=== PATIENT | male | born 1970 | race Caucasian/White ===

== ENCOUNTER 2016-07-08 14:10 | Inpatient (IN) | payer MEDICAID ==
[~2016-07-08] VITALS: Ht 185.4 cm; Wt 70.2 kg
[~2016-07-08 14:10] MED LIST: AMOX-263 PO; AZIT500T4 PO; DIG0125T PO; METH5TAB77 PO; METO25TA3 PO
[2016-07-08] MEDS ORDERED: SODIUM CHLORIDE 0.9% 1,000 ML IV ONE (14:27)
[2016-07-08] MEDS ORDERED: ALBUTEROL SULF 2.5 MG/0.5ML(0.5%) NEB SOLN NEB ONE (14:30)
[2016-07-08] MEDS ORDERED: IPRATROPIUM BROM 0.5 MG/2.5ML INH SOL NEB ONE (14:30)
[2016-07-08] MEDS ORDERED: cefTRIAXone 1GM/50ML D5W 50 ML IV ONE (14:30)
[2016-07-08 14:57] LABS: Basophils # (auto) 0 uL; Basophils % (auto) 0.2 % (0.0-2.0); Eosinophils # (auto) 0 uL; Eosinophils % (auto) 0.3 % (0.0-7.0); Hematocrit 42.6 % (41.0-53.0); Hemoglobin 13.8 g/dL (13.5-17.5); Lymphocytes # (auto) 0.7 uL; Lymphocytes % (auto) 5.3 % (10.0-50.0); Mean Corpuscular Hgb Conc. 32.3 g/dL (32.0-36.0); Mean Corpuscular Volume 86.8 fL (80.0-100.0); Mean Platelet Volume 9.2 fL (7.4-10.4); Monocytes # (auto) 0.6 uL; Monocytes % (auto) 4.6 % (0.0-12.0); Neutrophils # (auto) 11.7 uL; Neutrophils % (auto) 89.6 % (37.0-80.0); Platelet Count (auto) 244 10^3/uL (140-450); Red Cell Distribution Width 14.1 % (11.6-16.0); White Blood Cell 13.1 10^3/uL (4.4-10.8)
[2016-07-08 15:17] LABS: Albumin 3.1 g/dL (3.4-5.0); BUN/Creatinine Ratio 16.7; Bilirubin, Total 1.5 mg/dL (0.2-1.0); Calcium 8.1 mg/dL (8.5-10.1); Potassium 4.3 mmol/L (3.5-5.1); Total Protein 7.9 g/dL (6.4-8.2)
[2016-07-08 15:17] LABS: Lactic Acid 2.1 mmol/L (0.4-2.0)
[2016-07-08 15:27] LABS: REFLEX LACTIC ACID YES OR NO YES
[2016-07-08] MEDS ORDERED: LIDOCAINE 1% HCL (LOCAL ANESTH.) INJ 20ML MDV ONE (15:58)
[2016-07-08] MEDS ORDERED: ONDANSETRON HCL 4 MG/2 ML VIAL ONE (16:05)
[2016-07-08] MEDS ORDERED: MORPHINE SULFATE 4 MG/ML SYRG ONE (16:05)
[2016-07-08 16:30] LABS: Temperature: 21.4 C (20.0-25.0)
[2016-07-08 16:40] LABS: B-Type Natriuretic Peptide 712.52 pg/mL (0-100)
[2016-07-08] MEDS ORDERED: ONDANSETRON HCL 4 MG/2 ML VIAL IV ONE (17:15)
[2016-07-08] MEDS ORDERED: MORPHINE SULFATE 4 MG/ML SYRG IV ONE (17:15)
[2016-07-08] MEDS ORDERED: VANCOMYCIN PER PHARMACY 0 MG IV SCH (18:15)
[2016-07-08] MEDS ORDERED: cloNIDine HCL 0.1 MG TAB PO PRN (18:15)
[2016-07-08] MEDS ORDERED: ACETAMINOPHEN 325 MG TAB PO PRN (18:30)
[2016-07-08] MEDS ORDERED: DOCUSATE SOD 100 MG CAP PO PRN (18:30)
[2016-07-08] MEDS ORDERED: TEMAZEPAM 15 MG CAP PO PRN (18:30)
[2016-07-08] MEDS ORDERED: MORPHINE SULF INJ 2 MG/ML SYRINGE 1ML IV PRN (18:30)
[2016-07-08] MEDS ORDERED: ONDANSETRON HCL 4 MG/2 ML VIAL IV PRN (18:30)
[2016-07-08] MEDS ORDERED: NITROGLYCERIN 0.4 MG SL TAB SL PRN (18:30)
[2016-07-08] MEDS: ZINC SULFATE 220 MG CAP PO SCH (18:47)
[2016-07-08] MEDS: MULTIPLE VITAMIN TAB PO SCH (18:47)
[2016-07-08] MEDS: VANCOMYCIN 1GM/250ML D5W 250 ML IV SCH (19:08)
[2016-07-08 19:53] VITALS: BP 124/69
[2016-07-08 20:30] VITALS: BP 127/78
[2016-07-08 20:33] VITALS: BP 127/78
[2016-07-08] MEDS: MORPHINE SULF INJ 2 MG/ML SYRINGE 1ML IV PRN (21:05)
[2016-07-08] MEDS: FAMOTIDINE 20 MG TAB PO SCH (22:14)
[2016-07-08] MEDS: SODIUM CHLOR 0.9% PF (SALINE LOCK) 10ML VIAL IV SCH (22:14)
[2016-07-08] MEDS: ASCORBIC ACID 500 MG TAB PO SCH (22:14)
[2016-07-09] MEDS: ALBUTEROL SULF 2.5 MG/0.5ML(0.5%) NEB SOLN NEB SCH ×4 (00:14→18:26)
[2016-07-09] MEDS: IPRATROPIUM BROM 0.5 MG/2.5ML INH SOL NEB SCH ×4 (00:15→18:26)
[2016-07-09 00:19] VITALS: BP 122/83
[2016-07-09] MEDS: MORPHINE SULF INJ 2 MG/ML SYRINGE 1ML IV PRN ×5 (03:49→21:31)
[2016-07-09] MEDS: VANCOMYCIN 1GM/250ML D5W 250 ML IV SCH ×2 (03:51→11:08)
[2016-07-09 04:51] VITALS: BP 137/91
[2016-07-09 05:36] LABS: Basophils # (auto) 0.1 uL; Basophils % (auto) 0.8 % (0.0-2.0); Eosinophils # (auto) 0.1 uL; Eosinophils % (auto) 0.6 % (0.0-7.0); Hematocrit 37.7 % (41.0-53.0); Hemoglobin 12.2 g/dL (13.5-17.5); Lymphocytes # (auto) 1.2 uL; Lymphocytes % (auto) 12.1 % (10.0-50.0); Mean Corpuscular Hgb Conc. 32.4 g/dL (32.0-36.0); Mean Corpuscular Volume 86.3 fL (80.0-100.0); Mean Platelet Volume 9.8 fL (7.4-10.4); Monocytes # (auto) 0.6 uL; Monocytes % (auto) 6.7 % (0.0-12.0); Neutrophils # (auto) 7.7 uL; Neutrophils % (auto) 79.8 % (37.0-80.0); Platelet Count (auto) 191 10^3/uL (140-450); White Blood Cell 9.6 10^3/uL (4.4-10.8)
[2016-07-09 05:50] LABS: Calcium 7.9 mg/dL (8.5-10.1); Potassium 4.5 mmol/L (3.5-5.1)
[2016-07-09 05:54] LABS: Albumin 2.7 g/dL (3.4-5.0); BUN/Creatinine Ratio 18.9
[2016-07-09 05:57] LABS: Bilirubin, Total 1.9 mg/dL (0.2-1.0); Total Protein 6.9 g/dL (6.4-8.2)
[2016-07-09] MEDS: SODIUM CHLOR 0.9% PF (SALINE LOCK) 10ML VIAL IV SCH ×3 (07:07→21:31)
[2016-07-09 08:00] VITALS: BP 132/88
[2016-07-09] MEDS: BOOST PLUS 8 ounce PO SCH ×3 (09:55→18:00)
[2016-07-09] MEDS: cefTRIAXone 1GM/50ML D5W 50 ML IV SCH (09:56)
[2016-07-09] MEDS: ZINC SULFATE 220 MG CAP PO SCH (09:57)
[2016-07-09] MEDS: MULTIPLE VITAMIN TAB PO SCH (09:57)
[2016-07-09] MEDS: FAMOTIDINE 20 MG TAB PO SCH ×2 (09:57→21:31)
[2016-07-09] MEDS: ASCORBIC ACID 500 MG TAB PO SCH ×2 (09:57→21:31)
[2016-07-09 12:00] VITALS: BP 146/75
[2016-07-09 16:00] VITALS: BP 127/68
[2016-07-09 20:00] VITALS: BP 130/82
[2016-07-09] MEDS: HYDROcodone-ACET 5/325MG TAB PO PRN (20:48)
[2016-07-09] MEDS ORDERED: METOPROLOL TARTRATE 25 MG TAB PO SCH (22:00)
[2016-07-10 00:07] VITALS: BP 136/70
[2016-07-10] MEDS: IPRATROPIUM BROM 0.5 MG/2.5ML INH SOL NEB SCH ×4 (00:35→19:25)
[2016-07-10] MEDS: ALBUTEROL SULF 2.5 MG/0.5ML(0.5%) NEB SOLN NEB SCH ×4 (00:35→19:26)
[2016-07-10] MEDS: MORPHINE SULF INJ 2 MG/ML SYRINGE 1ML IV PRN ×5 (02:11→23:49)
[2016-07-10 04:23] VITALS: BP 140/81
[2016-07-10] MEDS: HYDROcodone-ACET 5/325MG TAB PO PRN ×2 (05:29→22:15)
[2016-07-10] MEDS: SODIUM CHLOR 0.9% PF (SALINE LOCK) 10ML VIAL IV SCH ×3 (05:30→22:13)
[2016-07-10 05:46] LABS: Basophils # (auto) 0 uL; Basophils % (auto) 0.3 % (0.0-2.0); Eosinophils # (auto) 0.1 uL; Eosinophils % (auto) 1.1 % (0.0-7.0); Hematocrit 40.1 % (41.0-53.0); Hemoglobin 12.8 g/dL (13.5-17.5); Lymphocytes # (auto) 1.2 uL; Lymphocytes % (auto) 10.5 % (10.0-50.0); Mean Corpuscular Hemoglobin 27.8 pg (28.0-32.0); Mean Corpuscular Hgb Conc. 31.8 g/dL (32.0-36.0); Mean Corpuscular Volume 87.4 fL (80.0-100.0); Mean Platelet Volume 10.2 fL (7.4-10.4); Monocytes # (auto) 0.7 uL; Monocytes % (auto) 6.2 % (0.0-12.0); Neutrophils # (auto) 9.3 uL; Neutrophils % (auto) 81.9 % (37.0-80.0); Platelet Count (auto) 211 10^3/uL (140-450); White Blood Cell 11.3 10^3/uL (4.4-10.8)
[2016-07-10 05:58] LABS: Partial Thromboplastin Time 34.1 sec (22.64-33.71)
[2016-07-10 06:06] LABS: Albumin 2.5 g/dL (3.4-5.0); BUN/Creatinine Ratio 18.9; Calcium 8.2 mg/dL (8.5-10.1); Potassium 4.3 mmol/L (3.5-5.1)
[2016-07-10 06:08] LABS: INR 1.36 (0.9-1.15)
[2016-07-10 06:11] LABS: Bilirubin, Total 1.8 mg/dL (0.2-1.0); Total Protein 6.9 g/dL (6.4-8.2)
[2016-07-10] MEDS: BOOST PLUS 8 ounce PO SCH ×3 (07:57→17:43)
[2016-07-10 08:00] VITALS: BP 121/73
[2016-07-10] MEDS: cefTRIAXone 1GM/50ML D5W 50 ML IV SCH (08:56)
[2016-07-10] MEDS ORDERED: HYDROmorphone HCL 2 MG/ML VL ONE (09:18)
[2016-07-10] MEDS ORDERED: PROPOFOL 10 MG/ML 20 ML IV ONE (09:19)
[2016-07-10] MEDS ORDERED: fentaNYL CITRATE 100 MCG/2 ML VL ONE ×3 (09:19→10:37)
[2016-07-10] MEDS ORDERED: ETOMIDATE (2MG/ML) 20ML VIAL IV ONE (09:19)
[2016-07-10] MEDS ORDERED: ePHEDrine SULFATE 50 MG/ML AMP ONE (09:19)
[2016-07-10] MEDS ORDERED: SODIUM CHLORIDE LOCK 20 ML ONE (09:19)
[2016-07-10] MEDS ORDERED: ROCURONIUM 10MG/ML 10ML VIAL IV ONE ×2 (09:19→10:19)
[2016-07-10] MEDS ORDERED: MIDAZOLAM HCL 1MG/1ML-2 ML VIAL ONE ×2 (09:19→10:22)
[2016-07-10] MEDS ORDERED: LIDOCAINE 1% HCL (LOCAL ANESTH.) INJ 20ML MDV ONE (09:25)
[2016-07-10] MEDS ORDERED: POVIDONE IODINE 10 % TOPICAL OINT 30GM TOP ONE ×2 (09:25→11:50)
[2016-07-10] MEDS ORDERED: fentaNYL CITRATE 5 ML ONE (09:34)
[2016-07-10] MEDS ORDERED: AZITHROMYCIN 500MG/D5W 250ML 250 ML IV SCH (10:00)
[2016-07-10] MEDS ORDERED: GLYCOPYRROLATE 0.2 MG/ML 1ML VIAL IV ONE (10:17)
[2016-07-10] MEDS ORDERED: DEXAMETHASONE SOD PHOS 10MG/1ML VIAL INJ IV ONE (10:17)
[2016-07-10] MEDS ORDERED: ESMOLOL HCL (10MG/ML) 10 ML VIAL IV ONE (10:17)
[2016-07-10] MEDS ORDERED: BUPIVACAINE W/ EPINEPH 0.25% INJ 50ML MDV ONE (10:49)
[2016-07-10] MEDS ORDERED: ALBUMIN 5% 250 ML IV ONE (10:57)
[2016-07-10] MEDS ORDERED: HYDROmorphone HCL 2 MG/ML VL IV PRN (12:00)
[2016-07-10] MEDS ORDERED: ONDANSETRON HCL 4 MG/2 ML VIAL IV ONE (12:00)
[2016-07-10] MEDS ORDERED: ACETAMINOPHEN 325 MG TAB PO PRN (13:30)
[2016-07-10] MEDS ORDERED: MORPHINE SULF INJ 2 MG/ML SYRINGE 1ML IV PRN (13:30)
[2016-07-10] MEDS ORDERED: cloNIDine HCL 0.1 MG TAB PO PRN (13:30)
[2016-07-10] MEDS ORDERED: TEMAZEPAM 15 MG CAP PO PRN (13:30)
[2016-07-10] MEDS ORDERED: NITROGLYCERIN 0.4 MG SL TAB SL PRN (13:30)
[2016-07-10] MEDS ORDERED: METOPROLOL TARTRATE 25 MG TAB PO ONE (14:15)
[2016-07-10] MEDS ORDERED: FAMOTIDINE 20 MG TAB PO ONE (14:15)
[2016-07-10] MEDS ORDERED: ASCORBIC ACID 500 MG TAB PO ONE (14:30)
[2016-07-10] MEDS ORDERED: MULTIPLE VITAMIN TAB PO ONE (14:30)
[2016-07-10 16:00] VITALS: BP 92/77
[2016-07-10 20:08] VITALS: BP 122/91
[2016-07-10] MEDS: ASCORBIC ACID 500 MG TAB PO SCH (22:14)
[2016-07-10] MEDS: FAMOTIDINE 20 MG TAB PO SCH (22:14)
[2016-07-10] MEDS: METOPROLOL TARTRATE 25 MG TAB PO SCH (22:15)
[2016-07-11] MEDS: ALBUTEROL SULF 2.5 MG/0.5ML(0.5%) NEB SOLN NEB SCH ×5 (00:21→23:38)
[2016-07-11] MEDS: IPRATROPIUM BROM 0.5 MG/2.5ML INH SOL NEB SCH ×5 (00:21→23:38)
[2016-07-11] MEDS: HYDROmorphone HCL 2 MG/ML VL IV PRN ×4 (01:50→21:38)
[2016-07-11 04:03] VITALS: BP 115/61
[2016-07-11] MEDS: HYDROcodone-ACET 5/325MG TAB PO PRN ×4 (04:15→22:13)
[2016-07-11] MEDS: SODIUM CHLOR 0.9% PF (SALINE LOCK) 10ML VIAL IV SCH ×3 (05:19→21:40)
[2016-07-11 08:00] VITALS: BP 119/76
[2016-07-11] MEDS: BOOST PLUS 8 ounce PO SCH ×3 (08:00→18:00)
[2016-07-11] MEDS: cefTRIAXone 1GM/50ML D5W 50 ML IV SCH (08:38)
[2016-07-11] MEDS: METOPROLOL TARTRATE 25 MG TAB PO SCH ×2 (09:54→21:41)
[2016-07-11] MEDS: MULTIPLE VITAMIN TAB PO SCH (09:54)
[2016-07-11] MEDS: AZITHROMYCIN 500MG/D5W 250ML 250 ML IV SCH (09:54)
[2016-07-11] MEDS: FAMOTIDINE 20 MG TAB PO SCH ×2 (09:55→21:40)
[2016-07-11] MEDS: ASCORBIC ACID 500 MG TAB PO SCH ×2 (09:55→21:40)
[2016-07-11 11:52] VITALS: BP 116/62
[2016-07-11 17:37] VITALS: BP 118/76
[2016-07-11 20:58] VITALS: BP 140/80
[2016-07-11 22:13] VITALS: BP 140/80
[2016-07-12] MEDS: HYDROcodone-ACET 5/325MG TAB PO PRN ×4 (03:15→22:10)
[2016-07-12] MEDS: SODIUM CHLOR 0.9% PF (SALINE LOCK) 10ML VIAL IV SCH ×3 (05:14→22:12)
[2016-07-12 05:42] VITALS: BP 110/70
[2016-07-12] MEDS: ALBUTEROL SULF 2.5 MG/0.5ML(0.5%) NEB SOLN NEB SCH ×3 (06:16→19:50)
[2016-07-12] MEDS: IPRATROPIUM BROM 0.5 MG/2.5ML INH SOL NEB SCH ×3 (06:16→19:50)
[2016-07-12] MEDS: HYDROmorphone HCL 2 MG/ML VL IV PRN ×2 (06:53→23:11)
[2016-07-12] MEDS: BOOST PLUS 8 ounce PO SCH ×3 (08:00→18:00)
[2016-07-12] MEDS: cefTRIAXone 1GM/50ML D5W 50 ML IV SCH (08:48)
[2016-07-12 09:18] VITALS: BP 110/71
[2016-07-12] MEDS: FAMOTIDINE 20 MG TAB PO SCH ×2 (10:05→22:10)
[2016-07-12] MEDS: AZITHROMYCIN 500MG/D5W 250ML 250 ML IV SCH (10:05)
[2016-07-12] MEDS: MULTIPLE VITAMIN TAB PO SCH (10:05)
[2016-07-12] MEDS: ASCORBIC ACID 500 MG TAB PO SCH ×2 (10:05→22:10)
[2016-07-12] MEDS: METOPROLOL TARTRATE 25 MG TAB PO SCH ×2 (10:06→22:11)
[2016-07-12 13:10] VITALS: BP 115/62
[2016-07-12 17:32] VITALS: BP 123/70
[2016-07-12 22:00] VITALS: BP 113/77
[2016-07-12] MEDS: APIXABAN 5 MG TAB PO SCH (22:10)
[2016-07-13] MEDS: IPRATROPIUM BROM 0.5 MG/2.5ML INH SOL NEB SCH ×3 (01:05→18:20)
[2016-07-13] MEDS: ALBUTEROL SULF 2.5 MG/0.5ML(0.5%) NEB SOLN NEB SCH ×4 (01:05→18:19)
[2016-07-13] MEDS: HYDROmorphone HCL 2 MG/ML VL IV PRN ×2 (03:34→16:57)
[2016-07-13 05:30] VITALS: BP 132/110
[2016-07-13] MEDS: SODIUM CHLOR 0.9% PF (SALINE LOCK) 10ML VIAL IV SCH ×3 (06:10→21:08)
[2016-07-13] MEDS: BOOST PLUS 8 ounce PO SCH ×3 (08:20→18:03)
[2016-07-13 09:00] VITALS: BP 113/80
[2016-07-13] MEDS: cefTRIAXone 1GM/50ML D5W 50 ML IV SCH (09:00)
[2016-07-13] MEDS: ASCORBIC ACID 500 MG TAB PO SCH ×2 (10:00→21:07)
[2016-07-13] MEDS: APIXABAN 5 MG TAB PO SCH (10:00)
[2016-07-13] MEDS: FAMOTIDINE 20 MG TAB PO SCH ×2 (10:00→21:06)
[2016-07-13] MEDS: MULTIPLE VITAMIN TAB PO SCH (10:00)
[2016-07-13] MEDS: METOPROLOL TARTRATE 25 MG TAB PO SCH ×2 (10:00→21:07)
[2016-07-13] MEDS: ONDANSETRON HCL 4 MG/2 ML VIAL IV PRN (10:39)
[2016-07-13] MEDS: AZITHROMYCIN 500MG/D5W 250ML 250 ML IV SCH (11:24)
[2016-07-13 13:00] VITALS: BP 140/76
[2016-07-13 17:12] VITALS: BP 121/73
[2016-07-13 20:00] VITALS: BP 108/84
[2016-07-13 22:00] VITALS: BP_SYST 101; BP_SYST 143; BP_DIAS 112; BP_DIAS 82
[2016-07-14] MEDS: ALBUTEROL SULF 2.5 MG/0.5ML(0.5%) NEB SOLN NEB SCH ×4 (00:18→18:00)
[2016-07-14] MEDS: IPRATROPIUM BROM 0.5 MG/2.5ML INH SOL NEB SCH ×4 (00:18→18:00)
[2016-07-14] MEDS: HYDROmorphone HCL 2 MG/ML VL IV PRN (04:01)
[2016-07-14 05:00] VITALS: BP 107/76
[2016-07-14] MEDS: SODIUM CHLOR 0.9% PF (SALINE LOCK) 10ML VIAL IV SCH ×3 (05:15→21:36)
[2016-07-14 08:24] VITALS: BP 141/73
[2016-07-14] MEDS: BOOST PLUS 8 ounce PO SCH ×3 (10:02→18:00)
[2016-07-14] MEDS: cefTRIAXone 1GM/50ML D5W 50 ML IV SCH (10:03)
[2016-07-14] MEDS: ASCORBIC ACID 500 MG TAB PO SCH ×2 (10:07→21:36)
[2016-07-14] MEDS: ENOXAPARIN SOD 40 MG/0.4 ML SYRINGE SC SCH (10:07)
[2016-07-14] MEDS: METOPROLOL TARTRATE 25 MG TAB PO SCH ×2 (10:08→21:36)
[2016-07-14] MEDS: FAMOTIDINE 20 MG TAB PO SCH ×2 (10:08→21:35)
[2016-07-14] MEDS: MULTIPLE VITAMIN TAB PO SCH (10:08)
[2016-07-14] MEDS: AZITHROMYCIN 500MG/D5W 250ML 250 ML IV SCH (12:02)
[2016-07-14 12:04] VITALS: BP 128/72
[2016-07-14] MEDS: HYDROcodone-ACET 5/325MG TAB PO PRN ×2 (15:59→23:24)
[2016-07-14 16:42] VITALS: BP 126/57
[2016-07-14 20:29] VITALS: BP 126/57
[2016-07-14 22:00] VITALS: BP 134/81
[2016-07-15] MEDS: HYDROmorphone HCL 2 MG/ML VL IV PRN ×3 (03:11→19:55)
[2016-07-15 05:35] VITALS: BP 95/68
[2016-07-15] MEDS: SODIUM CHLOR 0.9% PF (SALINE LOCK) 10ML VIAL IV SCH ×3 (05:40→22:09)
[2016-07-15] MEDS: IPRATROPIUM BROM 0.5 MG/2.5ML INH SOL NEB SCH ×3 (06:34→19:33)
[2016-07-15] MEDS: ALBUTEROL SULF 2.5 MG/0.5ML(0.5%) NEB SOLN NEB SCH ×3 (06:34→19:33)
[2016-07-15 07:22] LABS: Basophils # (auto) 0 uL; Basophils % (auto) 0.3 % (0.0-2.0); DEFINITIVE VIEW TRANSMISSION; Eosinophils % (auto) 8.8 % (0.0-7.0); Hematocrit 42.4 % (41.0-53.0); Hemoglobin 13.6 g/dL (13.5-17.5); Lymphocytes # (auto) 2.4 uL; Lymphocytes % (auto) 22.2 % (10.0-50.0); Mean Corpuscular Hemoglobin 27.8 pg (28.0-32.0); Mean Corpuscular Volume 86.8 fL (80.0-100.0); Monocytes # (auto) 0.5 uL; Monocytes % (auto) 4.6 % (0.0-12.0); Neutrophils % (auto) 64.1 % (37.0-80.0); Platelet Count (auto) 321 10^3/uL (140-450); Red Cell Distribution Width 13.8 % (11.6-16.0); White Blood Cell 10.9 10^3/uL (4.4-10.8)
[2016-07-15 09:00] VITALS: BP 111/65
[2016-07-15] MEDS: METOPROLOL TARTRATE 25 MG TAB PO SCH ×2 (10:00→22:08)
[2016-07-15] MEDS: BOOST PLUS 8 ounce PO SCH ×3 (10:04→19:03)
[2016-07-15] MEDS: cefTRIAXone 1GM/50ML D5W 50 ML IV SCH (10:04)
[2016-07-15] MEDS: MULTIPLE VITAMIN TAB PO SCH (10:07)
[2016-07-15] MEDS: ASCORBIC ACID 500 MG TAB PO SCH ×2 (10:08→22:08)
[2016-07-15] MEDS: FAMOTIDINE 20 MG TAB PO SCH ×2 (10:08→22:08)
[2016-07-15] MEDS: ENOXAPARIN SOD 40 MG/0.4 ML SYRINGE SC SCH (10:08)
[2016-07-15] MEDS ORDERED: AZITHROMYCIN 250 MG TAB PO ONE (11:15)
[2016-07-15 12:41] VITALS: BP 106/64
[2016-07-15 17:07] VITALS: BP 131/73
[2016-07-15 21:51] VITALS: BP 124/70
[2016-07-15] MEDS: DOCUSATE SOD 100 MG CAP PO PRN (22:09)
[2016-07-15] MEDS: HYDROcodone-ACET 5/325MG TAB PO PRN (22:12)
[2016-07-16] MEDS: HYDROmorphone HCL 2 MG/ML VL IV PRN ×5 (00:25→23:05)
[2016-07-16] MEDS: ALBUTEROL SULF 2.5 MG/0.5ML(0.5%) NEB SOLN NEB SCH ×5 (00:26→18:00)
[2016-07-16] MEDS: IPRATROPIUM BROM 0.5 MG/2.5ML INH SOL NEB SCH ×5 (00:26→18:00)
[2016-07-16 05:18] VITALS: BP 137/65
[2016-07-16] MEDS: SODIUM CHLOR 0.9% PF (SALINE LOCK) 10ML VIAL IV SCH ×3 (07:43→23:06)
[2016-07-16] MEDS: BOOST PLUS 8 ounce PO SCH ×3 (08:00→18:56)
[2016-07-16 09:00] VITALS: BP 93/53
[2016-07-16] MEDS: cefTRIAXone 1GM/50ML D5W 50 ML IV SCH (09:33)
[2016-07-16] MEDS ORDERED: AZITHROMYCIN 250 MG TAB PO SCH (10:00)
[2016-07-16] MEDS: ASCORBIC ACID 500 MG TAB PO SCH ×2 (10:03→23:06)
[2016-07-16] MEDS: FAMOTIDINE 20 MG TAB PO SCH ×2 (10:03→23:06)
[2016-07-16] MEDS: ENOXAPARIN SOD 40 MG/0.4 ML SYRINGE SC SCH (10:03)
[2016-07-16] MEDS: MULTIPLE VITAMIN TAB PO SCH (10:03)
[2016-07-16] MEDS: METOPROLOL TARTRATE 25 MG TAB PO SCH ×2 (10:39→22:00)
[2016-07-16 13:00] VITALS: BP 101/67
[2016-07-16 17:00] VITALS: BP 103/69
[2016-07-16] MEDS: HYDROcodone-ACET 5/325MG TAB PO PRN (20:49)
[2016-07-16 22:00] VITALS: BP 104/56
[2016-07-16] MEDS: ONDANSETRON HCL 4 MG/2 ML VIAL IV PRN (23:05)
[2016-07-16] MEDS: DOCUSATE SOD 100 MG CAP PO PRN (23:06)
[2016-07-17] MEDS: HYDROcodone-ACET 5/325MG TAB PO PRN ×3 (01:20→20:29)
[2016-07-17] MEDS: HYDROmorphone HCL 2 MG/ML VL IV PRN ×4 (04:14→22:21)
[2016-07-17] MEDS: ONDANSETRON HCL 4 MG/2 ML VIAL IV PRN ×2 (04:15→18:13)
[2016-07-17] MEDS: SODIUM CHLOR 0.9% PF (SALINE LOCK) 10ML VIAL IV SCH ×3 (04:15→22:22)
[2016-07-17 05:00] VITALS: BP 92/55
[2016-07-17 07:13] LABS: Urine Bilirubin Negative (Negative); Urine Blood Negative /uL (Negative); Urine Color Yellow (Yellow); Urine Glucose Normal (Normal); Urine Ketone Negative (Negative); Urine Nitrite Negative (Negative); Urine RBC <1 /hpf (0 - 3); Urine Urobilinogen Normal (Negative)
[2016-07-17 07:30] VITALS: BP 120/80
[2016-07-17 07:53] VITALS: BP 125/62
[2016-07-17 07:53] LABS: Partial Thromboplastin Time 28.7 sec (22.64-33.71)
[2016-07-17 07:59] LABS: Basophils # (auto) 0 uL; Basophils % (auto) 0.3 % (0.0-2.0); Eosinophils # (auto) 0.5 uL; Hematocrit 40.3 % (41.0-53.0); Hemoglobin 12.9 g/dL (13.5-17.5); Lymphocytes # (auto) 1.9 uL; Lymphocytes % (auto) 31.4 % (10.0-50.0); Mean Corpuscular Hemoglobin 27.8 pg (28.0-32.0); Mean Corpuscular Hgb Conc. 31.9 g/dL (32.0-36.0); Mean Platelet Volume 9.2 fL (7.4-10.4); Monocytes # (auto) 0.4 uL; Monocytes % (auto) 6.3 % (0.0-12.0); Neutrophils # (auto) 3.3 uL; Platelet Count (auto) 332 10^3/uL (140-450); Red Cell Distribution Width 14.5 % (11.6-16.0); White Blood Cell 6.1 10^3/uL (4.4-10.8)
[2016-07-17 08:00] LABS: INR 1.23 (0.9-1.15); Prothrombin Time 12.7 sec (9.37-12.3)
[2016-07-17] MEDS: IPRATROPIUM BROM 0.5 MG/2.5ML INH SOL NEB SCH ×4 (08:00→20:12)
[2016-07-17] MEDS: BOOST PLUS 8 ounce PO SCH ×3 (08:00→18:05)
[2016-07-17] MEDS: ALBUTEROL SULF 2.5 MG/0.5ML(0.5%) NEB SOLN NEB SCH ×4 (08:01→20:12)
[2016-07-17 08:16] LABS: Albumin 2.5 g/dL (3.4-5.0); BUN/Creatinine Ratio 23.1; Calcium 8.9 mg/dL (8.5-10.1); Potassium 4.9 mmol/L (3.5-5.1); Total Protein 7.3 g/dL (6.4-8.2)
[2016-07-17 10:00] VITALS: BP 93/69
[2016-07-17] MEDS: MULTIPLE VITAMIN TAB PO SCH (10:12)
[2016-07-17] MEDS: FAMOTIDINE 20 MG TAB PO SCH ×2 (10:12→22:21)
[2016-07-17] MEDS: ASCORBIC ACID 500 MG TAB PO SCH ×2 (10:12→22:21)
[2016-07-17] MEDS: DOCUSATE SOD 100 MG CAP PO PRN ×2 (10:12→20:29)
[2016-07-17] MEDS: METOPROLOL TARTRATE 25 MG TAB PO SCH ×2 (10:13→22:00)
[2016-07-17] MEDS: ENOXAPARIN SOD 40 MG/0.4 ML SYRINGE SC SCH (10:13)
[2016-07-17] MEDS: PHYTONADIONE(VIT K) 5 MG TAB PO SCH (12:47)
[2016-07-17 16:39] VITALS: BP 98/59
[2016-07-17 22:00] VITALS: BP 95/55
[2016-07-18] MEDS: IPRATROPIUM BROM 0.5 MG/2.5ML INH SOL NEB SCH ×4 (00:05→19:02)
[2016-07-18] MEDS: ALBUTEROL SULF 2.5 MG/0.5ML(0.5%) NEB SOLN NEB SCH ×4 (00:05→19:02)
[2016-07-18] MEDS: HYDROcodone-ACET 5/325MG TAB PO PRN ×2 (00:40→04:34)
[2016-07-18] MEDS: HYDROmorphone HCL 2 MG/ML VL IV PRN ×4 (02:26→22:53)
[2016-07-18 03:42] VITALS: BP 95/55
[2016-07-18] MEDS: SODIUM CHLOR 0.9% PF (SALINE LOCK) 10ML VIAL IV SCH ×3 (06:18→22:53)
[2016-07-18 07:13] LABS: INR 1.14 (0.9-1.15); Partial Thromboplastin Time 28.4 sec (22.64-33.71); Prothrombin Time 11.7 sec (9.37-12.3)
[2016-07-18 07:16] LABS: Albumin 2.8 g/dL (3.4-5.0); BUN/Creatinine Ratio 26.8; Potassium 4.8 mmol/L (3.5-5.1); Total Protein 7.6 g/dL (6.4-8.2)
[2016-07-18] MEDS: BOOST PLUS 8 ounce PO SCH ×3 (08:00→18:20)
[2016-07-18 09:01] VITALS: BP 109/67
[2016-07-18] MEDS: MULTIPLE VITAMIN TAB PO SCH (09:47)
[2016-07-18] MEDS: ENOXAPARIN SOD 40 MG/0.4 ML SYRINGE SC SCH (09:47)
[2016-07-18] MEDS: ASCORBIC ACID 500 MG TAB PO SCH ×2 (09:47→22:53)
[2016-07-18] MEDS: FAMOTIDINE 20 MG TAB PO SCH ×2 (09:47→22:52)
[2016-07-18] MEDS: METOPROLOL TARTRATE 25 MG TAB PO SCH ×2 (09:48→22:52)
[2016-07-18] MEDS: DOCUSATE SOD 100 MG CAP PO PRN (10:07)
[2016-07-18] MEDS: ONDANSETRON HCL 4 MG/2 ML VIAL IV PRN (10:07)
[2016-07-18] MEDS: PHYTONADIONE(VIT K) 5 MG TAB PO SCH (10:28)
[2016-07-18 12:39] VITALS: BP 142/67
[2016-07-18 17:04] VITALS: BP 118/85
[2016-07-18 22:00] VITALS: BP 122/67
[2016-07-19] MEDS: HYDROcodone-ACET 5/325MG TAB PO PRN (02:13)
[2016-07-19] MEDS: DOCUSATE SOD 100 MG CAP PO PRN (02:13)
[2016-07-19] MEDS: HYDROmorphone HCL 2 MG/ML VL IV PRN ×3 (04:40→15:48)
[2016-07-19 05:03] VITALS: BP 115/69
[2016-07-19] MEDS: SODIUM CHLOR 0.9% PF (SALINE LOCK) 10ML VIAL IV SCH ×3 (06:00→22:16)
[2016-07-19 07:42] LABS: BUN/Creatinine Ratio 22.2; Calcium 8.6 mg/dL (8.5-10.1); Potassium 4.3 mmol/L (3.5-5.1)
[2016-07-19 07:49] LABS: Basophils # (auto) 0 uL; Basophils % (auto) 0.3 % (0.0-2.0); Eosinophils # (auto) 0.3 uL; Eosinophils % (auto) 5.2 % (0.0-7.0); Hematocrit 39.4 % (41.0-53.0); Hemoglobin 12.7 g/dL (13.5-17.5); Lymphocytes # (auto) 1.4 uL; Lymphocytes % (auto) 23.5 % (10.0-50.0); Mean Corpuscular Hemoglobin 27.9 pg (28.0-32.0); Mean Corpuscular Hgb Conc. 32.2 g/dL (32.0-36.0); Mean Corpuscular Volume 86.6 fL (80.0-100.0); Mean Platelet Volume 9.2 fL (7.4-10.4); Monocytes # (auto) 0.3 uL; Monocytes % (auto) 4.8 % (0.0-12.0); Neutrophils % (auto) 66.2 % (37.0-80.0); Platelet Count (auto) 304 10^3/uL (140-450); Red Cell Distribution Width 14.6 % (11.6-16.0)
[2016-07-19] MEDS: BOOST PLUS 8 ounce PO SCH ×3 (08:10→17:48)
[2016-07-19 09:00] VITALS: BP 94/51
[2016-07-19] MEDS: ALBUTEROL SULF 2.5 MG/0.5ML(0.5%) NEB SOLN NEB SCH ×3 (09:12→20:08)
[2016-07-19] MEDS: IPRATROPIUM BROM 0.5 MG/2.5ML INH SOL NEB SCH ×3 (09:12→20:08)
[2016-07-19] MEDS: METOPROLOL TARTRATE 25 MG TAB PO SCH ×2 (10:00→22:20)
[2016-07-19] MEDS: FAMOTIDINE 20 MG TAB PO SCH ×2 (10:15→22:21)
[2016-07-19] MEDS: ASCORBIC ACID 500 MG TAB PO SCH ×2 (10:15→22:20)
[2016-07-19] MEDS: PHYTONADIONE(VIT K) 5 MG TAB PO SCH (10:15)
[2016-07-19] MEDS: MULTIPLE VITAMIN TAB PO SCH (10:15)
[2016-07-19 13:00] VITALS: BP 94/71
[2016-07-19 17:00] VITALS: BP 108/58
[2016-07-19 21:27] VITALS: BP 128/78
[2016-07-20] MEDS: ALBUTEROL SULF 2.5 MG/0.5ML(0.5%) NEB SOLN NEB SCH ×4 (00:50→19:50)
[2016-07-20] MEDS: IPRATROPIUM BROM 0.5 MG/2.5ML INH SOL NEB SCH ×4 (00:50→19:50)
[2016-07-20] MEDS: HYDROmorphone HCL 2 MG/ML VL IV PRN ×4 (01:05→21:15)
[2016-07-20 04:49] VITALS: BP 115/69
[2016-07-20] MEDS: SODIUM CHLOR 0.9% PF (SALINE LOCK) 10ML VIAL IV SCH ×3 (05:35→21:25)
[2016-07-20] MEDS: BOOST PLUS 8 ounce PO SCH ×3 (08:00→18:00)
[2016-07-20 09:00] VITALS: BP 94/55
[2016-07-20] MEDS: MULTIPLE VITAMIN TAB PO SCH (09:46)
[2016-07-20] MEDS: ASCORBIC ACID 500 MG TAB PO SCH ×2 (09:46→21:25)
[2016-07-20] MEDS: HYDROcodone-ACET 5/325MG TAB PO PRN (09:46)
[2016-07-20] MEDS: METOPROLOL TARTRATE 25 MG TAB PO SCH ×2 (09:47→22:00)
[2016-07-20] MEDS: FAMOTIDINE 20 MG TAB PO SCH ×2 (09:52→21:26)
[2016-07-20 13:00] VITALS: BP 130/75
[2016-07-20 17:00] VITALS: BP 110/76
[2016-07-20 22:07] VITALS: BP 117/79
[2016-07-21] MEDS: HYDROmorphone HCL 2 MG/ML VL IV PRN ×3 (01:13→11:19)
[2016-07-21 04:42] VITALS: BP 147/73
[2016-07-21] MEDS: SODIUM CHLOR 0.9% PF (SALINE LOCK) 10ML VIAL IV SCH ×3 (05:35→22:00)
[2016-07-21] MEDS: ALBUTEROL SULF 2.5 MG/0.5ML(0.5%) NEB SOLN NEB SCH ×4 (06:00→19:00)
[2016-07-21] MEDS: IPRATROPIUM BROM 0.5 MG/2.5ML INH SOL NEB SCH ×4 (06:00→19:00)
[2016-07-21] MEDS: HYDROcodone-ACET 5/325MG TAB PO PRN ×3 (08:02→13:01)
[2016-07-21] MEDS: BOOST PLUS 8 ounce PO SCH ×2 (08:03→12:00)
[2016-07-21 08:09] VITALS: BP 105/76
[2016-07-21] MEDS: METOPROLOL TARTRATE 25 MG TAB PO SCH ×2 (10:00→22:00)
[2016-07-21] MEDS: FAMOTIDINE 20 MG TAB PO SCH ×2 (11:18→22:00)
[2016-07-21] MEDS: MULTIPLE VITAMIN TAB PO SCH (11:18)
[2016-07-21] MEDS: ASCORBIC ACID 500 MG TAB PO SCH ×2 (11:19→22:00)
[2016-07-21] MEDS: ONDANSETRON HCL 4 MG/2 ML VIAL IV PRN (11:19)
[2016-07-21 12:41] VITALS: BP 130/74
[2016-07-21 15:56] VITALS: BP 130/92
[2016-07-21 16:48] VITALS: BP 138/84
[2016-07-21 22:00] VITALS: BP 140/74
[2016-07-22] MEDS: ALBUTEROL SULF 2.5 MG/0.5ML(0.5%) NEB SOLN NEB SCH ×4 (00:39→19:10)
[2016-07-22] MEDS: IPRATROPIUM BROM 0.5 MG/2.5ML INH SOL NEB SCH ×4 (00:39→19:10)
[2016-07-22] MEDS: HYDROcodone-ACET 5/325MG TAB PO PRN ×3 (04:12→19:52)
[2016-07-22 05:00] VITALS: BP 120/82
[2016-07-22 05:38] LABS: Calcium 8.6 mg/dL (8.5-10.1); Potassium 3.9 mmol/L (3.5-5.1)
[2016-07-22 05:41] LABS: BUN/Creatinine Ratio 21.1
[2016-07-22] MEDS: SODIUM CHLOR 0.9% PF (SALINE LOCK) 10ML VIAL IV SCH ×3 (05:47→21:15)
[2016-07-22 05:58] LABS: Basophils # (auto) 0 uL; Basophils % (auto) 0.3 % (0.0-2.0); Eosinophils # (auto) 0.5 uL; Hematocrit 40.4 % (41.0-53.0); Hemoglobin 12.7 g/dL (13.5-17.5); Lymphocytes # (auto) 1.4 uL; Lymphocytes % (auto) 18.6 % (10.0-50.0); Mean Corpuscular Hemoglobin 27.3 pg (28.0-32.0); Mean Corpuscular Hgb Conc. 31.5 g/dL (32.0-36.0); Mean Corpuscular Volume 86.8 fL (80.0-100.0); Mean Platelet Volume 9.2 fL (7.4-10.4); Monocytes # (auto) 0.5 uL; Monocytes % (auto) 6.4 % (0.0-12.0); Neutrophils # (auto) 5.1 uL; Neutrophils % (auto) 68.7 % (37.0-80.0); Platelet Count (auto) 228 10^3/uL (140-450); Red Cell Distribution Width 13.3 % (11.6-16.0); White Blood Cell 7.5 10^3/uL (4.4-10.8)
[2016-07-22] MEDS: BOOST PLUS 8 ounce PO SCH ×4 (08:11→18:00)
[2016-07-22 09:00] VITALS: BP 146/81
[2016-07-22] MEDS ORDERED: TEMAZEPAM 15 MG CAP PO PRN (10:30)
[2016-07-22] MEDS ORDERED: MORPHINE SULF INJ 2 MG/ML SYRINGE 1ML IV PRN (10:30)
[2016-07-22] MEDS: MULTIPLE VITAMIN TAB PO SCH (10:58)
[2016-07-22] MEDS: FAMOTIDINE 20 MG TAB PO SCH ×2 (10:58→21:15)
[2016-07-22] MEDS: ASCORBIC ACID 500 MG TAB PO SCH ×2 (10:58→21:15)
[2016-07-22] MEDS: METOPROLOL TARTRATE 25 MG TAB PO SCH ×2 (10:59→21:15)
[2016-07-22 12:00] VITALS: BP 131/101
[2016-07-22 15:27] LABS: Partial Thromboplastin Time 28.5 sec (22.64-33.71)
[2016-07-22 16:00] VITALS: BP 98/64
[2016-07-22 16:21] LABS: INR 1.17 (0.9-1.15)
[2016-07-22 22:00] VITALS: BP 127/66
[2016-07-23] VITALS (11 sets, daily range): BP systolic 94–172; BP diastolic 56–129
[2016-07-23] MEDS: HYDROcodone-ACET 5/325MG TAB PO PRN ×2 (00:51→05:59)
[2016-07-23] MEDS: ALBUTEROL SULF 2.5 MG/0.5ML(0.5%) NEB SOLN NEB SCH ×4 (01:05→19:51)
[2016-07-23] MEDS: IPRATROPIUM BROM 0.5 MG/2.5ML INH SOL NEB SCH ×4 (01:05→19:51)
[2016-07-23] MEDS: SODIUM CHLOR 0.9% PF (SALINE LOCK) 10ML VIAL IV SCH ×2 (05:59→22:00)
[2016-07-23 07:19] LABS: Basophils # (auto) 0.1 uL; Basophils % (auto) 1.1 % (0.0-2.0); Eosinophils # (auto) 0.4 uL; Eosinophils % (auto) 5.8 % (0.0-7.0); Hematocrit 41.5 % (41.0-53.0); Hemoglobin 13.2 g/dL (13.5-17.5); Lymphocytes # (auto) 1.9 uL; Lymphocytes % (auto) 26.2 % (10.0-50.0); Mean Corpuscular Hemoglobin 27.4 pg (28.0-32.0); Mean Corpuscular Hgb Conc. 31.9 g/dL (32.0-36.0); Mean Platelet Volume 9.7 fL (7.4-10.4); Monocytes # (auto) 0.6 uL; Neutrophils # (auto) 4.3 uL; Neutrophils % (auto) 58.9 % (37.0-80.0); Platelet Count (auto) 258 10^3/uL (140-450); Red Cell Distribution Width 14.3 % (11.6-16.0); White Blood Cell 7.3 10^3/uL (4.4-10.8)
[2016-07-23 07:22] LABS: Prothrombin Time 12.2 sec (9.37-12.3)
[2016-07-23 07:27] LABS: INR 1.18 (0.9-1.15)
[2016-07-23 07:35] LABS: Albumin 2.6 g/dL (3.4-5.0); BUN/Creatinine Ratio 25.3; Calcium 8.9 mg/dL (8.5-10.1); Magnesium 2.1 mg/dL (1.6-2.6); Potassium 4.3 mmol/L (3.5-5.1); Total Protein 7.7 g/dL (6.4-8.2)
[2016-07-23] MEDS: BOOST PLUS 8 ounce PO SCH ×2 (08:00→18:00)
[2016-07-23] MEDS ORDERED: LIDOCAINE 1% HCL (LOCAL ANESTH.) INJ 20ML MDV ONE (08:20)
[2016-07-23] MEDS ORDERED: BUPIVACAINE W/ EPINEPH 0.25% INJ 50ML MDV ONE (08:21)
[2016-07-23] MEDS ORDERED: LIDOCAINE W/ EPINEPHRINE 1 % INJ 30ML ONE (08:21)
[2016-07-23] MEDS ORDERED: POVIDONE IODINE 10 % TOPICAL OINT 30GM TOP ONE ×2 (08:21→14:15)
[2016-07-23] MEDS ORDERED: BUPIVACAINE 0.25% INJ 50ML VIAL ONE (08:21)
[2016-07-23] MEDS ORDERED: ceFAZolin 1GM/50ML D5W 50 ML IV ONE (08:59)
[2016-07-23] MEDS ORDERED: fentaNYL CITRATE 100 MCG/2 ML VL ONE ×3 (09:27→11:35)
[2016-07-23] MEDS ORDERED: MIDAZOLAM HCL 1MG/1ML-2 ML VIAL ONE ×2 (09:28→10:49)
[2016-07-23] MEDS ORDERED: ETOMIDATE (2MG/ML) 20ML VIAL IV ONE (09:28)
[2016-07-23] MEDS ORDERED: DEXAMETHASONE SOD PHOS 10MG/1ML VIAL INJ ONE (09:29)
[2016-07-23] MEDS: FAMOTIDINE 20 MG TAB PO SCH ×2 (10:00→22:00)
[2016-07-23] MEDS: ASCORBIC ACID 500 MG TAB PO SCH ×2 (10:00→22:00)
[2016-07-23] MEDS: MULTIPLE VITAMIN TAB PO SCH (10:00)
[2016-07-23] MEDS: METOPROLOL TARTRATE 25 MG TAB PO SCH ×2 (10:00→22:00)
[2016-07-23] MEDS ORDERED: KETOROLAC TROMETH 60MG/2ML VIAL IM ONE (11:01)
[2016-07-23] MEDS ORDERED: ROCURONIUM 10MG/ML 10ML VIAL IV ONE (11:31)
[2016-07-23] MEDS ORDERED: ONDANSETRON HCL 4 MG/2 ML VIAL IV PRN ×2 (13:30→14:15)
[2016-07-23] MEDS ORDERED: NITROGLYCERIN 0.4 MG SL TAB SL PRN ×2 (13:30→14:15)
[2016-07-23] MEDS ORDERED: DOCUSATE SOD 100 MG CAP PO PRN ×2 (13:30→14:15)
[2016-07-23] MEDS ORDERED: ACETAMINOPHEN 325 MG TAB PO PRN ×2 (13:30→14:15)
[2016-07-23] MEDS ORDERED: cloNIDine HCL 0.1 MG TAB PO PRN ×2 (13:30→14:15)
[2016-07-23] MEDS ORDERED: ASCORBIC ACID 500 MG TAB PO ONE (13:45)
[2016-07-23] MEDS ORDERED: METOPROLOL TARTRATE 25 MG TAB PO ONE (13:45)
[2016-07-23] MEDS ORDERED: FAMOTIDINE 20 MG TAB PO ONE (13:45)
[2016-07-23] MEDS ORDERED: MULTIPLE VITAMIN TAB PO ONE (13:45)
[2016-07-23] MEDS ORDERED: SODIUM CHLOR 0.9% PF (SALINE LOCK) 10ML VIAL IV SCH (14:00)
[2016-07-23] MEDS ORDERED: LABETALOL HCL 5 MG/ML 4ML SYRINGE IV ONE (14:14)
[2016-07-23] MEDS ORDERED: TEMAZEPAM 15 MG CAP PO PRN (14:15)
[2016-07-23] MEDS ORDERED: MORPHINE SULF INJ 2 MG/ML SYRINGE 1ML IV PRN (14:15)
[2016-07-23] MEDS: LABETALOL HCL 5 MG/ML 4ML SYRINGE IV PRN ×4 (14:22→14:42)
[2016-07-23] MEDS ORDERED: MIDAZOLAM DRIP 100 mg/100mL NS 100 ML IV SCH (14:45)
[2016-07-23] MEDS ORDERED: PROPOFOL 100 ML IV SCH (14:45)
[2016-07-23 14:50] LABS: Basophils # (auto) 0 uL; Basophils % (auto) 0.2 % (0.0-2.0); DEFINITIVE VIEW TRANSMISSION; Eosinophils # (auto) 0.2 uL; Eosinophils % (auto) 1.3 % (0.0-7.0); Hematocrit 50.8 % (41.0-53.0); Hemoglobin 15.9 g/dL (13.5-17.5); Lymphocytes # (auto) 1.1 uL; Lymphocytes % (auto) 8.5 % (10.0-50.0); Mean Corpuscular Hemoglobin 27.7 pg (28.0-32.0); Mean Corpuscular Hgb Conc. 31.2 g/dL (32.0-36.0); Mean Corpuscular Volume 88.7 fL (80.0-100.0); Mean Platelet Volume 9.4 fL (7.4-10.4); Monocytes # (auto) 0.2 uL; Monocytes % (auto) 1.5 % (0.0-12.0); Neutrophils % (auto) 88.5 % (37.0-80.0); Platelet Count (auto) 305 10^3/uL (140-450); Red Cell Distribution Width 14.6 % (11.6-16.0); White Blood Cell 12.4 10^3/uL (4.4-10.8)
[2016-07-23] MEDS: DILTIAZEM 125mg/125ml BAG KIT 125 ML IV SCH (15:15)
[2016-07-23] MEDS: PROPOFOL 100 ML IV SCH (15:15)
[2016-07-23] MEDS ORDERED: ALBUMIN 25% 50 ML IV ONE ×2 (15:30→15:51)
[2016-07-23] MEDS: HYDROmorphone HCL 2 MG/ML VL IV PRN (16:25)
[2016-07-23] MEDS ORDERED: FUROSEMIDE 20 MG/2 ML VIAL ONE (16:25)
[2016-07-23] MEDS ORDERED: FUROSEMIDE 20 MG/2 ML VIAL IV ONE (16:30)
[2016-07-23] MEDS: fentaNYL Drip 2500mCg/250mlNS 250 ML IV SCH (17:08)
[2016-07-23] MEDS ORDERED: BOOST PLUS 8 ounce PO SCH (18:00)
[2016-07-23] MEDS ORDERED: IPRATROPIUM BROM 0.5 MG/2.5ML INH SOL NEB SCH (18:00)
[2016-07-23] MEDS ORDERED: ALBUTEROL SULF 2.5 MG/0.5ML(0.5%) NEB SOLN NEB SCH (18:00)
[2016-07-23] MEDS ORDERED: ASCORBIC ACID 500 MG TAB PO SCH (22:00)
[2016-07-23] MEDS ORDERED: METOPROLOL TARTRATE 25 MG TAB PO SCH (22:00)
[2016-07-23] MEDS ORDERED: FAMOTIDINE 20 MG TAB PO SCH (22:00)
[2016-07-24] VITALS (98 sets, daily range): BP systolic 93–146; BP diastolic 42–98
[2016-07-24] MEDS: ALBUTEROL SULF 2.5 MG/0.5ML(0.5%) NEB SOLN NEB SCH ×4 (00:38→19:02)
[2016-07-24] MEDS: IPRATROPIUM BROM 0.5 MG/2.5ML INH SOL NEB SCH ×4 (00:38→19:02)
[2016-07-24] MEDS: HYDROmorphone HCL 2 MG/ML VL IV PRN (00:43)
[2016-07-24] MEDS: MIDAZOLAM DRIP 100 mg/100mL NS 100 ML IV SCH (01:19)
[2016-07-24 04:08] LABS: Basophils # (auto) 0 uL; Basophils % (auto) 0.2 % (0.0-2.0); Eosinophils # (auto) 0 uL; Hematocrit 42.5 % (41.0-53.0); Hemoglobin 13.6 g/dL (13.5-17.5); Lymphocytes # (auto) 0.6 uL; Mean Corpuscular Hemoglobin 27.8 pg (28.0-32.0); Mean Corpuscular Volume 86.8 fL (80.0-100.0); Mean Platelet Volume 10.3 fL (7.4-10.4); Monocytes # (auto) 0.7 uL; Monocytes % (auto) 6.7 % (0.0-12.0); Neutrophils % (auto) 87.1 % (37.0-80.0); Platelet Count (auto) 226 10^3/uL (140-450); White Blood Cell 10.4 10^3/uL (4.4-10.8)
[2016-07-24 04:27] LABS: Prothrombin Time 12.1 sec (9.37-12.3)
[2016-07-24 04:29] LABS: BUN/Creatinine Ratio 30.2; Calcium 8.1 mg/dL (8.5-10.1); Potassium 4.6 mmol/L (3.5-5.1)
[2016-07-24 04:46] LABS: INR 1.17 (0.9-1.15)
[2016-07-24] MEDS: PROPOFOL 100 ML IV SCH (04:52)
[2016-07-24] MEDS: SODIUM CHLOR 0.9% PF (SALINE LOCK) 10ML VIAL IV SCH ×3 (05:55→21:42)
[2016-07-24] MEDS: BOOST PLUS 8 ounce PO SCH ×3 (08:00→17:19)
[2016-07-24] MEDS ORDERED: MULTIPLE VITAMIN TAB PO SCH (10:00)
[2016-07-24] MEDS: MULTIPLE VITAMIN TAB PO SCH (12:18)
[2016-07-24] MEDS: METOPROLOL TARTRATE 25 MG TAB PO SCH (12:19)
[2016-07-24] MEDS: FAMOTIDINE 20 MG TAB PO SCH ×2 (12:19→21:42)
[2016-07-24] MEDS: ASCORBIC ACID 500 MG TAB PO SCH ×2 (12:19→21:43)
[2016-07-24] MEDS: DIGOXIN (250MCG/ML) 2 ML AMPULE IV SCH ×2 (15:00→20:30)
[2016-07-24] MEDS: DILTIAZEM 125mg/125ml BAG KIT 125 ML IV SCH (15:00)
[2016-07-24] MEDS ORDERED: ACETAMINOPHEN 325 MG TAB PO ONE (19:33)
[2016-07-24] MEDS ORDERED: ACETAMINOPHEN 325 MG TAB PO PRN (19:45)
[2016-07-25] VITALS (104 sets, daily range): BP systolic 95–203; BP diastolic 45–114
[2016-07-25] MEDS: IPRATROPIUM BROM 0.5 MG/2.5ML INH SOL NEB SCH ×4 (00:52→17:52)
[2016-07-25] MEDS: ALBUTEROL SULF 2.5 MG/0.5ML(0.5%) NEB SOLN NEB SCH ×4 (00:52→17:52)
[2016-07-25] MEDS: MIDAZOLAM DRIP 100 mg/100mL NS 100 ML IV SCH (00:53)
[2016-07-25] MEDS: DIGOXIN (250MCG/ML) 2 ML AMPULE IV SCH (02:30)
[2016-07-25 03:49] LABS: Basophils # (auto) 0 uL; Basophils % (auto) 0.1 % (0.0-2.0); Eosinophils # (auto) 0 uL; Hematocrit 38.8 % (41.0-53.0); Hemoglobin 12.6 g/dL (13.5-17.5); Lymphocytes # (auto) 1.1 uL; Lymphocytes % (auto) 9.5 % (10.0-50.0); Mean Corpuscular Hgb Conc. 32.5 g/dL (32.0-36.0); Mean Corpuscular Volume 86.4 fL (80.0-100.0); Mean Platelet Volume 11.1 fL (7.4-10.4); Monocytes # (auto) 0.9 uL; Monocytes % (auto) 7.3 % (0.0-12.0); Neutrophils # (auto) 9.7 uL; Neutrophils % (auto) 83.1 % (37.0-80.0); Platelet Count (auto) 170 10^3/uL (140-450); Red Cell Distribution Width 14.6 % (11.6-16.0); White Blood Cell 11.7 10^3/uL (4.4-10.8)
[2016-07-25 04:13] LABS: Prothrombin Time 12.2 sec (9.37-12.3)
[2016-07-25 04:14] LABS: INR 1.18 (0.9-1.15)
[2016-07-25] MEDS: fentaNYL Drip 2500mCg/250mlNS 250 ML IV SCH ×2 (05:05→16:36)
[2016-07-25] MEDS: SODIUM CHLOR 0.9% PF (SALINE LOCK) 10ML VIAL IV SCH ×3 (06:04→21:49)
[2016-07-25] MEDS: PROPOFOL 100 ML IV SCH (06:29)
[2016-07-25 06:36] LABS: BUN/Creatinine Ratio 37.7; Calcium 8.3 mg/dL (8.5-10.1); Magnesium 2.3 mg/dL (1.6-2.6); Potassium 4.2 mmol/L (3.5-5.1)
[2016-07-25] MEDS: BOOST PLUS 8 ounce PO SCH ×3 (08:00→18:00)
[2016-07-25] MEDS: ASCORBIC ACID 500 MG TAB PO SCH ×2 (09:24→21:49)
[2016-07-25] MEDS: MULTIPLE VITAMIN TAB PO SCH (09:24)
[2016-07-25] MEDS: FAMOTIDINE 20 MG TAB PO SCH ×2 (09:24→21:49)
[2016-07-25] MEDS ORDERED: DIGOXIN 0.125 MG TAB PO ONE (11:00)
[2016-07-25] MEDS ORDERED: LORazepam 2MG/ML-1ML VIAL IV PRN (18:45)
[2016-07-25] MEDS ORDERED: LORazepam 2MG/ML-1ML VIAL ONE (18:46)
[2016-07-25] MEDS ORDERED: DILTIAZEM 125mg/125ml BAG KIT 125 ML IV SCH (19:15)
[2016-07-25] MEDS: LABETALOL HCL 5 MG/ML 4ML SYRINGE IV PRN (21:23)
[2016-07-25] MEDS ORDERED: AMIODARONE HCL 150 MG in D5W 5% 100 ML IV ONE (21:30)
[2016-07-25] MEDS ORDERED: DIGOXIN (250MCG/ML) 2 ML AMPULE IV ONE (21:30)
[2016-07-25] MEDS ORDERED: AMIODARONE HCL 900 MG in DEXTROSE 500 ML IV SCH (21:38)
[2016-07-25] MEDS: METOPROLOL TARTRATE 25 MG TAB PO SCH (21:49)
[2016-07-25] MEDS: HYDROmorphone HCL 2 MG/ML VL IV PRN (23:55)
[2016-07-26] VITALS (62 sets, daily range): BP systolic 107–162; BP diastolic 59–98
[2016-07-26 03:33] LABS: Hematocrit 41.6 % (41.0-53.0); Hemoglobin 13.7 g/dL (13.5-17.5); Mean Corpuscular Hemoglobin 28.3 pg (28.0-32.0); Mean Corpuscular Volume 85.9 fL (80.0-100.0); Mean Platelet Volume 11.1 fL (7.4-10.4); Platelet Count (auto) 154 10^3/uL (140-450); Red Cell Distribution Width 14.2 % (11.6-16.0); SUSPECT VIEW TRANSMISSION; White Blood Cell 13.5 10^3/uL (4.4-10.8)
[2016-07-26 03:40] LABS: Metamyelocytes % 0; Myelocytes % 0; Promyelocytes % 0; Reactive Lymphocytes 0
[2016-07-26 03:45] LABS: BUN/Creatinine Ratio 43.5; Calcium 8.9 mg/dL (8.5-10.1); Potassium 4.4 mmol/L (3.5-5.1)
[2016-07-26] MEDS: AMIODARONE HCL 900 MG in DEXTROSE 500 ML IV SCH ×2 (03:48→23:26)
[2016-07-26 03:50] LABS: INR 1.3 (0.9-1.15); Prothrombin Time 13.4 sec (9.37-12.3)
[2016-07-26 04:29] LABS: Platelet Estimate Adequate; RBC Morphology Normal
[2016-07-26] MEDS: ALBUTEROL SULF 2.5 MG/0.5ML(0.5%) NEB SOLN NEB SCH ×4 (05:47→17:56)
[2016-07-26] MEDS: IPRATROPIUM BROM 0.5 MG/2.5ML INH SOL NEB SCH ×4 (05:47→17:56)
[2016-07-26] MEDS: SODIUM CHLOR 0.9% PF (SALINE LOCK) 10ML VIAL IV SCH ×3 (06:00→21:56)
[2016-07-26] MEDS: BOOST PLUS 8 ounce PO SCH ×3 (08:00→17:56)
[2016-07-26] MEDS: ASCORBIC ACID 500 MG TAB PO SCH ×2 (09:00→21:56)
[2016-07-26] MEDS ORDERED: PIPERACILLIN-TAZOB 3.375GM 100 ML IV ONE (09:00)
[2016-07-26] MEDS ORDERED: VANCOMYCIN PER PHARMACY 0 MG IV SCH (09:00)
[2016-07-26] MEDS: METOPROLOL TARTRATE 25 MG TAB PO SCH ×2 (09:00→21:56)
[2016-07-26] MEDS: MULTIPLE VITAMIN TAB PO SCH (09:01)
[2016-07-26] MEDS: DIGOXIN 0.125 MG TAB PO SCH (09:01)
[2016-07-26] MEDS: FAMOTIDINE 20 MG TAB PO SCH ×2 (09:01→21:56)
[2016-07-26] MEDS: ENOXAPARIN SOD 40 MG/0.4 ML SYRINGE SC SCH (09:01)
[2016-07-26] MEDS: HYDROmorphone HCL 2 MG/ML VL IV PRN ×2 (09:53→19:50)
[2016-07-26] MEDS ORDERED: VANCOMYCIN 1GM/250ML D5W 250 ML IV ONE (11:00)
[2016-07-26] MEDS: PROPOFOL 100 ML IV SCH (14:15)
[2016-07-26] MEDS: PIPERACILLIN-TAZOB 3.375GM 100 ML IV SCH ×2 (14:25→21:00)
[2016-07-26] MEDS: MIDAZOLAM DRIP 100 mg/100mL NS 100 ML IV SCH ×2 (15:50→19:49)
[2016-07-26] MEDS: fentaNYL Drip 2500mCg/250mlNS 250 ML IV SCH (15:51)
[2016-07-26] MEDS: VANCOMYCIN 1GM/250ML D5W 250 ML IV SCH (23:26)
[2016-07-27] VITALS (39 sets, daily range): BP systolic 98–146; BP diastolic 54–100
[2016-07-27] MEDS: PIPERACILLIN-TAZOB 3.375GM 100 ML IV SCH ×4 (02:20→22:50)
[2016-07-27 03:35] LABS: Basophils # (auto) 0 uL; Basophils % (auto) 0.2 % (0.0-2.0); Eosinophils # (auto) 0.3 uL; Eosinophils % (auto) 2.5 % (0.0-7.0); Hematocrit 39.3 % (41.0-53.0); Hemoglobin 12.7 g/dL (13.5-17.5); Lymphocytes % (auto) 9.9 % (10.0-50.0); Mean Corpuscular Hemoglobin 28.2 pg (28.0-32.0); Mean Corpuscular Hgb Conc. 32.3 g/dL (32.0-36.0); Mean Corpuscular Volume 87.1 fL (80.0-100.0); Mean Platelet Volume 10.7 fL (7.4-10.4); Monocytes # (auto) 0.9 uL; Monocytes % (auto) 9.1 % (0.0-12.0); Neutrophils # (auto) 8.1 uL; Neutrophils % (auto) 78.3 % (37.0-80.0); Platelet Count (auto) 146 10^3/uL (140-450); White Blood Cell 10.3 10^3/uL (4.4-10.8)
[2016-07-27 03:54] LABS: Albumin 1.9 g/dL (3.4-5.0); BUN/Creatinine Ratio 35.7; Potassium 3.8 mmol/L (3.5-5.1)
[2016-07-27 04:00] LABS: Bilirubin, Total 5.7 mg/dL (0.2-1.0); Total Protein 6.4 g/dL (6.4-8.2)
[2016-07-27] MEDS: HYDROmorphone HCL 2 MG/ML VL IV PRN ×4 (04:05→23:13)
[2016-07-27] MEDS: SODIUM CHLOR 0.9% PF (SALINE LOCK) 10ML VIAL IV SCH ×3 (06:00→22:54)
[2016-07-27] MEDS: ALBUTEROL SULF 2.5 MG/0.5ML(0.5%) NEB SOLN NEB SCH ×5 (06:51→23:58)
[2016-07-27] MEDS: IPRATROPIUM BROM 0.5 MG/2.5ML INH SOL NEB SCH ×5 (06:51→23:58)
[2016-07-27] MEDS: BOOST PLUS 8 ounce PO SCH ×3 (08:00→18:04)
[2016-07-27] MEDS: METOPROLOL TARTRATE 25 MG TAB PO SCH ×2 (08:39→23:00)
[2016-07-27] MEDS: ENOXAPARIN SOD 40 MG/0.4 ML SYRINGE SC SCH (08:39)
[2016-07-27] MEDS: MULTIPLE VITAMIN TAB PO SCH (08:39)
[2016-07-27] MEDS: FAMOTIDINE 20 MG TAB PO SCH ×2 (08:39→22:55)
[2016-07-27] MEDS: ASCORBIC ACID 500 MG TAB PO SCH ×2 (08:39→22:55)
[2016-07-27] MEDS: DIGOXIN 0.125 MG TAB PO SCH (08:39)
[2016-07-27] MEDS: AMIODARONE HCL 200 MG TAB PO SCH (10:21)
[2016-07-27] MEDS: VANCOMYCIN 1GM/250ML D5W 250 ML IV SCH (12:00)
[2016-07-27] MEDS: PROPOFOL 100 ML IV SCH (14:15)
[2016-07-28] MEDS: VANCOMYCIN 1GM/250ML D5W 250 ML IV SCH ×3 (02:58→20:12)
[2016-07-28] MEDS: HYDROcodone-ACET 5/325MG TAB PO PRN ×3 (02:59→17:26)
[2016-07-28] MEDS: PIPERACILLIN-TAZOB 3.375GM 100 ML IV SCH ×4 (03:56→21:06)
[2016-07-28] MEDS: HYDROmorphone HCL 2 MG/ML VL IV PRN ×3 (04:01→20:13)
[2016-07-28 04:45] VITALS: BP 101/66
[2016-07-28 05:57] LABS: Basophils # (auto) 0 uL; Basophils % (auto) 0.2 % (0.0-2.0); Eosinophils # (auto) 0.3 uL; Eosinophils % (auto) 2.7 % (0.0-7.0); Hematocrit 38.4 % (41.0-53.0); Hemoglobin 12.3 g/dL (13.5-17.5); Lymphocytes # (auto) 1.1 uL; Lymphocytes % (auto) 11.4 % (10.0-50.0); Mean Corpuscular Hemoglobin 27.7 pg (28.0-32.0); Mean Corpuscular Hgb Conc. 31.9 g/dL (32.0-36.0); Mean Corpuscular Volume 86.8 fL (80.0-100.0); Mean Platelet Volume 10.9 fL (7.4-10.4); Monocytes # (auto) 0.9 uL; Monocytes % (auto) 9.4 % (0.0-12.0); Neutrophils # (auto) 7.5 uL; Neutrophils % (auto) 76.3 % (37.0-80.0); Platelet Count (auto) 184 10^3/uL (140-450); White Blood Cell 9.8 10^3/uL (4.4-10.8)
[2016-07-28] MEDS: SODIUM CHLOR 0.9% PF (SALINE LOCK) 10ML VIAL IV SCH ×3 (06:00→22:56)
[2016-07-28] MEDS: ALBUTEROL SULF 2.5 MG/0.5ML(0.5%) NEB SOLN NEB SCH ×2 (07:38→19:22)
[2016-07-28] MEDS: IPRATROPIUM BROM 0.5 MG/2.5ML INH SOL NEB SCH ×2 (07:38→19:22)
[2016-07-28 08:00] VITALS: BP 118/65
[2016-07-28] MEDS: BOOST PLUS 8 ounce PO SCH ×3 (08:00→17:48)
[2016-07-28] MEDS: AMIODARONE HCL 200 MG TAB PO SCH (10:16)
[2016-07-28] MEDS: DIGOXIN 0.125 MG TAB PO SCH (10:16)
[2016-07-28] MEDS: METOPROLOL TARTRATE 25 MG TAB PO SCH ×2 (10:17→22:57)
[2016-07-28] MEDS: ASCORBIC ACID 500 MG TAB PO SCH ×2 (10:17→22:57)
[2016-07-28] MEDS: MULTIPLE VITAMIN TAB PO SCH (10:17)
[2016-07-28] MEDS: FAMOTIDINE 20 MG TAB PO SCH ×2 (10:17→22:56)
[2016-07-28] MEDS: ENOXAPARIN SOD 40 MG/0.4 ML SYRINGE SC SCH (10:18)
[2016-07-28] MEDS: LACTULOSE 20Gm/30ML SOLN PO SCH ×2 (10:18→22:56)
[2016-07-28 11:48] VITALS: BP 118/65
[2016-07-28 15:42] VITALS: BP 114/60
[2016-07-28 20:00] VITALS: BP 103/62
[2016-07-29] VITALS: BP 108/62
[2016-07-29] MEDS: HYDROmorphone HCL 2 MG/ML VL IV PRN ×5 (01:12→21:44)
[2016-07-29] MEDS: PIPERACILLIN-TAZOB 3.375GM 100 ML IV SCH ×4 (02:47→21:34)
[2016-07-29 04:00] VITALS: BP 112/61
[2016-07-29] MEDS: VANCOMYCIN 1GM/250ML D5W 250 ML IV SCH ×3 (04:54→20:27)
[2016-07-29] MEDS: SODIUM CHLOR 0.9% PF (SALINE LOCK) 10ML VIAL IV SCH ×3 (06:17→21:34)
[2016-07-29] MEDS: IPRATROPIUM BROM 0.5 MG/2.5ML INH SOL NEB SCH ×3 (07:01→18:00)
[2016-07-29] MEDS: ALBUTEROL SULF 2.5 MG/0.5ML(0.5%) NEB SOLN NEB SCH ×3 (07:01→18:00)
[2016-07-29 07:50] VITALS: BP 106/66
[2016-07-29] MEDS: BOOST PLUS 8 ounce PO SCH ×3 (08:16→17:30)
[2016-07-29] MEDS: ENOXAPARIN SOD 40 MG/0.4 ML SYRINGE SC SCH (09:48)
[2016-07-29] MEDS: ASCORBIC ACID 500 MG TAB PO SCH ×2 (09:49→21:34)
[2016-07-29] MEDS: MULTIPLE VITAMIN TAB PO SCH (09:49)
[2016-07-29] MEDS: METOPROLOL TARTRATE 25 MG TAB PO SCH ×2 (09:49→21:43)
[2016-07-29] MEDS: AMIODARONE HCL 200 MG TAB PO SCH (09:49)
[2016-07-29] MEDS: DIGOXIN 0.125 MG TAB PO SCH (09:49)
[2016-07-29] MEDS: LACTULOSE 20Gm/30ML SOLN PO SCH ×2 (09:50→21:34)
[2016-07-29] MEDS: FAMOTIDINE 20 MG TAB PO SCH ×2 (09:51→21:34)
[2016-07-29 11:59] VITALS: BP 111/71
[2016-07-29 16:30] VITALS: BP 132/56
[2016-07-29 22:00] VITALS: BP 102/62
[2016-07-30] VITALS (8 sets, daily range): BP systolic 97–120; BP diastolic 46–70
[2016-07-30] MEDS: ALBUTEROL SULF 2.5 MG/0.5ML(0.5%) NEB SOLN NEB SCH
[2016-07-30] MEDS: IPRATROPIUM BROM 0.5 MG/2.5ML INH SOL NEB SCH
[2016-07-30] MEDS: HYDROmorphone HCL 2 MG/ML VL IV PRN ×6 (01:55→23:15)
[2016-07-30] MEDS: PIPERACILLIN-TAZOB 3.375GM 100 ML IV SCH ×4 (02:23→21:40)
[2016-07-30] MEDS: VANCOMYCIN 1GM/250ML D5W 250 ML IV SCH ×3 (03:43→19:54)
[2016-07-30] MEDS: SODIUM CHLOR 0.9% PF (SALINE LOCK) 10ML VIAL IV SCH ×3 (05:29→21:40)
[2016-07-30] MEDS: BOOST PLUS 8 ounce PO SCH ×3 (08:06→18:05)
[2016-07-30] MEDS: ENOXAPARIN SOD 40 MG/0.4 ML SYRINGE SC SCH (10:19)
[2016-07-30] MEDS: LACTULOSE 20Gm/30ML SOLN PO SCH ×2 (10:19→21:40)
[2016-07-30] MEDS: METOPROLOL TARTRATE 25 MG TAB PO SCH ×2 (10:20→21:41)
[2016-07-30] MEDS: ASCORBIC ACID 500 MG TAB PO SCH ×2 (10:20→21:42)
[2016-07-30] MEDS: FAMOTIDINE 20 MG TAB PO SCH ×2 (10:20→21:41)
[2016-07-30] MEDS: DIGOXIN 0.125 MG TAB PO SCH (10:20)
[2016-07-30] MEDS: MULTIPLE VITAMIN TAB PO SCH (10:20)
[2016-07-30] MEDS: AMIODARONE HCL 200 MG TAB PO SCH (10:21)
[2016-07-30] MEDS: PRO-STAT 64 30ML PO SCH (18:05)
[2016-07-31] MEDS: PIPERACILLIN-TAZOB 3.375GM 100 ML IV SCH ×2 (01:59→09:02)
[2016-07-31] MEDS: HYDROmorphone HCL 2 MG/ML VL IV PRN ×4 (03:15→23:06)
[2016-07-31] MEDS ORDERED: PNEUMOCOCCAL VACC POLYS 25 MCG/0.5 ML VIAL IM ONE (04:00)
[2016-07-31] MEDS: VANCOMYCIN 1GM/250ML D5W 250 ML IV SCH ×2 (04:50→12:42)
[2016-07-31 05:17] VITALS: BP 110/68
[2016-07-31] MEDS: SODIUM CHLOR 0.9% PF (SALINE LOCK) 10ML VIAL IV SCH ×3 (06:00→23:05)
[2016-07-31 06:25] LABS: Basophils # (auto) 0 uL; Basophils % (auto) 0.5 % (0.0-2.0); Eosinophils # (auto) 0.2 uL; Eosinophils % (auto) 2.7 % (0.0-7.0); Hematocrit 39.5 % (41.0-53.0); Hemoglobin 12.7 g/dL (13.5-17.5); Lymphocytes # (auto) 1.2 uL; Lymphocytes % (auto) 13.8 % (10.0-50.0); Mean Corpuscular Hemoglobin 27.7 pg (28.0-32.0); Mean Corpuscular Hgb Conc. 32.1 g/dL (32.0-36.0); Mean Corpuscular Volume 86.1 fL (80.0-100.0); Mean Platelet Volume 9.9 fL (7.4-10.4); Monocytes # (auto) 0.9 uL; Monocytes % (auto) 10.5 % (0.0-12.0); Neutrophils # (auto) 6.5 uL; Neutrophils % (auto) 72.5 % (37.0-80.0); Platelet Count (auto) 279 10^3/uL (140-450); Red Cell Distribution Width 13.8 % (11.6-16.0)
[2016-07-31 06:45] LABS: Potassium 3.8 mmol/L (3.5-5.1)
[2016-07-31 07:01] LABS: BUN/Creatinine Ratio 18.9; Calcium 7.9 mg/dL (8.5-10.1)
[2016-07-31] MEDS: BOOST PLUS 8 ounce PO SCH ×3 (07:32→17:43)
[2016-07-31] MEDS: PRO-STAT 64 30ML PO SCH ×2 (07:33→17:43)
[2016-07-31 08:09] VITALS: BP_SYST 110; BP_SYST 125; BP_DIAS 63; BP_DIAS 87
[2016-07-31] MEDS: ASCORBIC ACID 500 MG TAB PO SCH ×2 (09:55→23:04)
[2016-07-31] MEDS: LACTULOSE 20Gm/30ML SOLN PO SCH ×2 (09:55→23:04)
[2016-07-31] MEDS: METOPROLOL TARTRATE 25 MG TAB PO SCH ×2 (09:55→23:05)
[2016-07-31] MEDS: AMIODARONE HCL 200 MG TAB PO SCH (09:55)
[2016-07-31] MEDS: FAMOTIDINE 20 MG TAB PO SCH ×2 (09:55→23:04)
[2016-07-31] MEDS: MULTIPLE VITAMIN TAB PO SCH (09:55)
[2016-07-31] MEDS: DIGOXIN 0.125 MG TAB PO SCH (09:55)
[2016-07-31] MEDS: ENOXAPARIN SOD 40 MG/0.4 ML SYRINGE SC SCH (09:56)
[2016-07-31 12:00] VITALS: BP 114/67
[2016-07-31] MEDS: LEVOFLOXACIN 500MG 100 ML IV SCH (15:49)
[2016-07-31 16:19] VITALS: BP 114/66
[2016-07-31 22:00] VITALS: BP 111/55
[2016-08-01] MEDS: HYDROmorphone HCL 2 MG/ML VL IV PRN ×5 (03:37→21:06)
[2016-08-01 05:00] VITALS: BP 111/59
[2016-08-01] MEDS: SODIUM CHLOR 0.9% PF (SALINE LOCK) 10ML VIAL IV SCH ×3 (05:41→22:23)
[2016-08-01] MEDS: BOOST PLUS 8 ounce PO SCH ×3 (07:28→17:33)
[2016-08-01] MEDS: PRO-STAT 64 30ML PO SCH ×2 (07:28→17:33)
[2016-08-01 09:00] VITALS: BP 119/69
[2016-08-01] MEDS: LEVOFLOXACIN 500MG 100 ML IV SCH (09:37)
[2016-08-01] MEDS: LACTULOSE 20Gm/30ML SOLN PO SCH ×2 (09:39→22:21)
[2016-08-01] MEDS: ENOXAPARIN SOD 40 MG/0.4 ML SYRINGE SC SCH (09:39)
[2016-08-01] MEDS: ASCORBIC ACID 500 MG TAB PO SCH ×2 (09:39→22:22)
[2016-08-01] MEDS: AMIODARONE HCL 200 MG TAB PO SCH (09:39)
[2016-08-01] MEDS: MULTIPLE VITAMIN TAB PO SCH (09:39)
[2016-08-01] MEDS: FAMOTIDINE 20 MG TAB PO SCH ×2 (09:40→22:22)
[2016-08-01] MEDS: DIGOXIN 0.125 MG TAB PO SCH (09:41)
[2016-08-01] MEDS: METOPROLOL TARTRATE 25 MG TAB PO SCH ×2 (09:42→22:22)
[2016-08-01 13:00] VITALS: BP 111/61
[2016-08-01 16:47] VITALS: BP 121/66
[2016-08-01 21:42] VITALS: BP 111/55
[2016-08-02] MEDS: HYDROmorphone HCL 2 MG/ML VL IV PRN ×5 (01:16→20:55)
[2016-08-02 04:36] VITALS: BP 101/56
[2016-08-02] MEDS: SODIUM CHLOR 0.9% PF (SALINE LOCK) 10ML VIAL IV SCH ×2 (06:04→14:00)
[2016-08-02] MEDS: PRO-STAT 64 30ML PO SCH ×2 (08:00→18:05)
[2016-08-02] MEDS: BOOST PLUS 8 ounce PO SCH ×3 (08:00→18:06)
[2016-08-02 09:00] VITALS: BP 108/64
[2016-08-02] MEDS: LEVOFLOXACIN 500MG 100 ML IV SCH (09:54)
[2016-08-02] MEDS: FAMOTIDINE 20 MG TAB PO SCH ×2 (09:55→20:59)
[2016-08-02] MEDS: MULTIPLE VITAMIN TAB PO SCH (09:55)
[2016-08-02] MEDS: ASCORBIC ACID 500 MG TAB PO SCH ×2 (09:55→20:59)
[2016-08-02] MEDS: DIGOXIN 0.125 MG TAB PO SCH (09:56)
[2016-08-02] MEDS: AMIODARONE HCL 200 MG TAB PO SCH (09:57)
[2016-08-02] MEDS: METOPROLOL TARTRATE 25 MG TAB PO SCH ×2 (09:57→20:59)
[2016-08-02] MEDS: LACTULOSE 20Gm/30ML SOLN PO SCH ×2 (10:00→20:59)
[2016-08-02] MEDS: ENOXAPARIN SOD 40 MG/0.4 ML SYRINGE SC SCH (10:13)
[2016-08-02 12:56] VITALS: BP 103/60
[2016-08-02 17:06] VITALS: BP 92/62
[2016-08-02 20:36] VITALS: BP 105/68
[2016-08-03] MEDS: HYDROmorphone HCL 2 MG/ML VL IV PRN ×3 (04:04→12:36)
[2016-08-03] MEDS: SODIUM CHLOR 0.9% PF (SALINE LOCK) 10ML VIAL IV SCH ×3 (04:08→14:08)
[2016-08-03 04:40] VITALS: BP 107/64
[2016-08-03 08:00] VITALS: BP 132/72
[2016-08-03] MEDS: PRO-STAT 64 30ML PO SCH (08:23)
[2016-08-03] MEDS: BOOST PLUS 8 ounce PO SCH ×2 (08:23→12:23)
[2016-08-03] MEDS: LACTULOSE 20Gm/30ML SOLN PO SCH (10:00)
[2016-08-03] MEDS: LEVOFLOXACIN 500MG 100 ML IV SCH (10:16)
[2016-08-03] MEDS: ASCORBIC ACID 500 MG TAB PO SCH (10:16)
[2016-08-03] MEDS: FAMOTIDINE 20 MG TAB PO SCH (10:16)
[2016-08-03] MEDS: ENOXAPARIN SOD 40 MG/0.4 ML SYRINGE SC SCH (10:16)
[2016-08-03] MEDS: MULTIPLE VITAMIN TAB PO SCH (10:16)
[2016-08-03] MEDS: AMIODARONE HCL 200 MG TAB PO SCH (10:17)
[2016-08-03] MEDS: METOPROLOL TARTRATE 25 MG TAB PO SCH (10:17)
[2016-08-03] MEDS: DIGOXIN 0.125 MG TAB PO SCH (10:17)
[2016-08-03 13:00] VITALS: BP 104/58
[2016-08-03 15:22] VITALS: BP 104/58
[2016-08-03 17:00] VITALS: BP 101/45
== END 2016-08-03 17:55 | disposition home or self-care (01) | DRG 710 ==
LOC: EDUNIT# 14:10 → ER 14:11 → TELE 14:12 → DOU IN ICU 20:20 → TELE-EAST 07-11 17:04 → ICU WEST 07-23 22:41 → DOU IN ICU 07-27 17:47 → WEST WING 07-29 15:27
PROVIDERS: ADMIT Internal Medicine; ATTEND Internal Medicine Pulmonary Disease
PROC: 5A1945Z Respiratory Ventilation, 24-96 Consecutive Hours (ICD-10-PCS; 2016-07-08)
PROC: 0BH18EZ Insertion of Endotracheal Airway into Trachea, Via Natural or Artificial Opening Endoscopic (ICD-10-PCS; 2016-07-08)
PROC: 30233N1 Transfusion of Nonautologous Red Blood Cells into Peripheral Vein, Percutaneous Approach (ICD-10-PCS; 2016-07-08)
PROC: 0BBC4ZZ Excision of Right Upper Lung Lobe, Percutaneous Endoscopic Approach (ICD-10-PCS; principal; 2016-07-10 10:17)
PROC: 0W9930Z Drainage of Right Pleural Cavity with Drainage Device, Percutaneous Approach (ICD-10-PCS; 2016-07-23)
PROC: 0BTF0ZZ Resection of Right Lower Lung Lobe, Open Approach (ICD-10-PCS; 2016-07-23)
DX: A41.9 Sepsis, unspecified organism (principal); J96.01 Acute respiratory failure with hypoxia; J93.0 Spontaneous tension pneumothorax; I50.43 Acute on chronic combined systolic (congestive) and diastolic (congestive) heart failure; E43 Unspecified severe protein-calorie malnutrition; I42.9 Cardiomyopathy, unspecified; J18.9 Pneumonia, unspecified organism; I11.0 Hypertensive heart disease with heart failure; E88.09 Other disorders of plasma-protein metabolism, not elsewhere classified; I27.2 Other secondary pulmonary hypertension; J44.9 Chronic obstructive pulmonary disease, unspecified; J44.0 Chronic obstructive pulmonary disease with (acute) lower respiratory infection; E44.0 Moderate protein-calorie malnutrition; E83.51 Hypocalcemia; F17.210 Nicotine dependence, cigarettes, uncomplicated; F32.9 Major depressive disorder, single episode, unspecified; F19.10 Other psychoactive substance abuse, uncomplicated; Z86.2 Personal history of diseases of the blood and blood-forming organs and certain disorders involving the immune mechanism; I48.0 Paroxysmal atrial fibrillation; J93.83 Other pneumothorax; I48.91 Unspecified atrial fibrillation; Z91.19 Patient's noncompliance with other medical treatment and regimen; I34.0 Nonrheumatic mitral (valve) insufficiency; Z82.49 Family history of ischemic heart disease and other diseases of the circulatory system; Z68.20 Body mass index [BMI] 20.0-20.9, adult; Z23 Encounter for immunization
CPT/HCPCS: 32551; 36415; 36600; 71010; 71020; 71250; 80048; 80053; 80202; 80320; 81001; 82805; 82962; 83605; 83735; 83880; 84484; 85007; 85025; 85027; 85610; 85730; 86850; 86900; 86901; 86920; 87040; 87070; 87081; 87205; 88341; 93005; 94002; 94003; 94640; 96365; 96375; 97001; 97116; 97530; A4565; J0690; J0696; J1100; J1885; J1956; J2001; J2250; J2405; J2543; J2704; J3010; J3490; J7060